=== PATIENT | female | born 2000 | race Caucasian/White ===

== ENCOUNTER 2020-07-14 19:42 | Emergency (ER) | payer BC ==
[~2020-07-14] VITALS: Ht 175.3 cm; Wt 47.0 kg
[2020-07-15] MEDS ORDERED: DEXAMETHASONE SOD PHOS 20 MG/5 ML VIAL. IV ONE (01:00)
--- NOTE | 2020-07-15 01:27 | RAD ---
Study: CR CHEST PA LATERAL Indication: Shortness of air. Comparison: None. Findings: The cardiomediastinal silhouette is within normal limits for size. Slight asymmetric haziness at the lower margin of the right hilum but favored summation artifact as there is no corresponding abnormality on the lateral view. No lobar consolidation, pleural effusion or pneumothorax. Hyperexpanded lungs with the diaphragm at the level of the T11-T12 disc space though the AP dimension of the chest is normal. Grossly intact osseous structures. Unremarkable visualized abdomen. Bilateral nipple rings. Impression: No acute radiographic abnormality of the chest. Relative hyperexpansion of the lungs is most likely physiologic given patient age. Electronically signed by: COLUMBA YOUNGER MD (07/15/2020 1:24 AM) [id number]
[2020-07-15 01:38] LABS: BASO # 0.1 x10^3/uL (0.0-0.2); BASO % 1 % (0-3); EOS # 0.4 x10^3/uL (0.0-0.7); EOS % 6 % (0-3); HEMATOCRIT 39.9 % (36.0-47.0); HEMOGLOBIN 13.4 g/dL (12.0-15.5); LYMPH # 3.1 x10^3/uL (1.0-4.8); LYMPH % 50 % (24-48); MEAN CORPUSCULAR HEMOGLOBIN 28 pg (25-35); MEAN CORPUSCULAR HGB CONC 34 g/dL (31-37); MEAN CORPUSCULAR VOLUME 83 fL (79-100); MONO # 0.5 x10^3/uL (0.0-1.1); MONO % 8 % (0-9); NEUT # 2.2 x10^3/uL (1.8-7.7); NEUT % 35 % (31-73); PLATELET COUNT 295 x10^3/uL (140-400); RED BLOOD COUNT 4.81 x10^6/uL (3.50-5.40); RED CELL DISTRIBUTION WIDTH 13.8 % (11.5-14.5); WHITE BLOOD COUNT 6.2 x10^3/uL (4.0-11.0)
[2020-07-15 01:47] LABS: CALCIUM 9.5 mg/dL (8.5-10.1); CREATININE 0.8 mg/dL (0.6-1.0); GFR 91.4; POTASSIUM 3.7 mmol/L (3.5-5.1)
[2020-07-15 01:50] LABS: PREG TEST PT QUAL NEGATIVE (NEG)
[2020-07-15 01:53] LABS: ALBUMIN 4.1 g/dL (3.4-5.0); ALBUMIN/GLOBULIN RATIO 1.1 (1.0-1.7); TOTAL BILIRUBIN 0.3 mg/dL (0.2-1.0); TOTAL PROTEIN 7.9 g/dL (6.4-8.2)
[2020-07-15] MEDS ORDERED: PRED20TA PO (03:19)
[2020-07-15] MEDS ORDERED: VENTOLIN HFA18 GM INH (03:19)
--- NOTE | 2020-07-15 03:23 | PHYS DOC ---
Past Medical History Past Medical History: Asthma Past Surgical History: No Surgical History Smoking Status: Never Smoker Alcohol Use: None General Adult EDM: Chief Complaint: SHORTNESS OF BREATH HPI: HPI: 19-year-old female past medical history significant for asthma, presents the ED with complaints of worsening shortness of breath and chest tightness x 5 days, such that patient is having difficulty sleeping at night and lying flat. Reports she tested positive for Covid 5 days ago. States she feels like she is having to use her inhaler every hour. No history of hospital admissions for her asthma. Was on control pills but started Depo-Provera 2 months ago, is currently on her menses. No history of leg swelling, recent surgeries or family history of coagulopathy. Review of Systems: Review of Systems: Constitutional: Denies fever or chills. [] Eyes: Denies change in visual acuity. [] HENT: Denies nasal congestion or sore throat. [] Respiratory: Denies cough or hemoptysis Cardiovascular: Denies syncope or edema. [] GI: Denies abdominal pain, nausea, vomiting, bloody stools or diarrhea. [] : Denies dysuria. [] Musculoskeletal: Denies back pain or joint pain. [] Integument: Denies rash. [] Neurologic: Denies headache, focal weakness or sensory changes. [] Endocrine: Denies polyuria or polydipsia. [] Lymphatic: Denies swollen glands. [] Psychiatric: Denies depression or anxiety. [] Heart Score: Risk Factors: Risk Factors: DM, Current or recent (<one month) smoker, HTN, HLP, family history of CAD, obesity. Risk Scores: Score 0 - 3: 2.5% MACE over next 6 weeks - Discharge Home Score 4 - 6: 20.3% MACE over next 6 weeks - Admit for Clinical Observation Score 7 - 10: 72.7% MACE over next 6 weeks - Early Invasive Strategies Current Medications: Current Medications Medications (Trade) Dose Ordered Sig/Kristen Start Time Stop Time Status Last Admin Dose Admin Dexamethasone Sodium Phosphate (Decadron) 10 mg 1X ONCE 07/15/20 01:00 07/15/20 01:01 DC 07/15/20 02:05 10 MG Allergies: Allergies: Allergies Coded Allergies Type Severity Reaction Last Updated Verified No Known Drug Allergies 07/14/20 No Physical Exam: PE: Constitutional: Well developed, well nourished, no acute distress, non-toxic appearance, very thin HENT: Normocephalic, atraumatic, bilateral external ears normal, oropharynx mo ist, no oral exudates, Eyes: EOMI, conjunctiva normal, no discharge. [] Neck: Normal range of motion, supple, no meningismus Cardiovascular: S1 and S2 present Lungs & Thorax: Speaking in full sentences with no tachypnea, bilateral equal chest rise Abdomen: soft, no tenderness, Skin: Warm, dry, no erythema, no rash. [] Extremities: No tenderness, no cyanosis, no clubbing, ROM intact, no LE edema Neurologic: Alert and oriented X 3, normal motor function, normal sensory function, no focal deficits noted. [] Psychologic: Affect normal, judgement normal, mood normal. [] Current Patient Data: Labs: Laboratory Tests Test 07/15/20 01:30 07/15/20 01:57 White Blood Count 6.2 x10^3/uL (4.0-11.0) Red Blood Count 4.81 x10^6/uL (3.50-5.40) Hemoglobin 13.4 g/dL (12.0-15.5) Hematocrit 39.9 % (36.0-47.0) Mean Corpuscular Volume 83 fL (79-100) Mean Corpuscular Hemoglobin 28 pg (25-35) Mean Corpuscular Hemoglobin Concent 34 g/dL (31-37) Red Cell Distribution Width 13.8 % (11.5-14.5) Platelet Count 295 x10^3/uL (140-400) Neutrophils (%) (Auto) 35 % (31-73) Lymphocytes (%) (Auto) 50 % (24-48) H Monocytes (%) (Auto) 8 % (0-9) Eosinophils (%) (Auto) 6 % (0-3) H Basophils (%) (Auto) 1 % (0-3) Neutrophils # (Auto) 2.2 x10^3/uL (1.8-7.7) Lymphocytes # (Auto) 3.1 x10^3/uL (1.0-4.8) Monocytes # (Auto) 0.5 x10^3/uL (0.0-1.1) Eosinophils # (Auto) 0.4 x10^3/uL (0.0-0.7) Basophils # (Auto) 0.1 x10^3/uL (0.0-0.2) D-Dimer (Tova) < 0.27 ug/mlFEU Sodium Level 141 mmol/L (136-145) Potassium Level 3.7 mmol/L (3.5-5.1) Chloride Level 105 mmol/L (98-107) Carbon Dioxide Level 26 mmol/L (21-32) Anion Gap 10 (6-14) Blood Urea Nitrogen 8 mg/dL (7-20) Creatinine 0.8 mg/dL (0.6-1.0) Estimated GFR (Cockcroft-Gault) 91.4 BUN/Creatinine Ratio 10 (6-20) Glucose Level 87 mg/dL (70-99) Calcium Level 9.5 mg/dL (8.5-10.1) Total Bilirubin 0.3 mg/dL (0.2-1.0) Aspartate Amino Transferase (AST) 32 U/L (15-37) Alanine Aminotransferase (ALT) 53 U/L (14-59) Alkaline Phosphatase 76 U/L (46-116) Troponin I Quantitative < 0.017 ng/mL (0.000-0.055) Total Protein 7.9 g/dL (6.4-8.2) Albumin 4.1 g/dL (3.4-5.0) Albumin/Globulin Ratio 1.1 (1.0-1.7) Serum Test, Qualitative Negative (NEG) POC Urine HCG, Qualitative Hcg negative (Negative) Laboratory Tests 07/15/20 01:30 Laboratory Tests 07/15/20 01:30 Vital Signs: Vital Signs Date Time Temp Pulse Resp B/P (MAP) Pulse Ox O2 Delivery O2 Flow Rate FiO2 07/14/20 23:51 97.9 78 18 129/82 (98) 97 Room Air 97.9 EKG: EKG: Sinus arrhythmia at 76 bpm, no axis deviation, normal intervals, T wave inversion lead III and V3, no ST elevations or ST depressions Radiology/Procedures: Radiology/Procedures: []IMAGING REPORT Signed PATIENT: ARIN BEAN ACCOUNT: [id number] : 2000 LOCATION: ER AGE: 19 SEX: F EXAM STATUS: REG ER ORD. PHYSICIAN: WASHINGTON MITCHELL DO REASON: soa PROCEDURE: CHEST PA & LATERAL Study: CR CHEST PA LATERAL Indication: Shortness of air. Comparison: None. Findings: The cardiomediastinal silhouette is within normal limits for size. Slight asymmetric haziness at the lower margin of the right hilum but favored summation artifact as there is no corresponding abnormality on the lateral view. No lobar consolidation, pleural effusion or pneumothorax. Hyperexpanded lungs with the diaphragm at the level of the T11-T12 disc space though the AP dimension of the chest is normal. Grossly intact osseous structures. Unremarkable visualized abdomen. Bilateral nipple rings. Impression: No acute radiographic abnormality of the chest. Relative hyperexpansion of the lungs is most likely physiologic given patient age. Electronically signed by: COLUMBA YOUNGER MD (07/15/2020 1:24 AM) [id number] DICTATED and SIGNED BY: COLUMBA YOUNGER MD DATE: 07/15/20 0124 Course & Med Decision Making: Course & Med Decision Making Pertinent Labs and Imaging studies reviewed. (See chart for details) COVID-19 CRITERIA: The patient was evaluated during the global COVID-19 pandemic, and that diagnosis was suspected/considered upon their initial pres entation. Their evaluation, treatment and testing was consistent with current guidelines for patients who present with complaints or symptoms that may be related to COVID-19. Concern for mild asthma exacerbation in the setting of COVID-19. Will dc home with prednisone and albuterol inhaler. Patient states she has had worsening asthma with steroid inhalers including Breo and Flovent. Patient was aware we ordered a D-dimer but did not rule out life-threatening pulmonary emboli -we will need further imaging if her shortness of breath should worsen or if she should develop any chest pain. Encourage patient to obtain a pulse oximeter- return if number drops below 92%. Strict ED return precautions were given for chest pain, increased work of breathing, hypoxia (pulse ox < 92%), strokelike symptoms, hemoptysis, syncope or neurologic deficits. Encouraged urgent outpatient follow-up with PMD and pulmonology. Life-threatening processes were considered but are low suspicion at this time, given history and physical exam. Pt was educated on all prescription medications and adverse effects. All patient's questions were answered and pt was stable at time of discharge. Life/limb-threatening differential includes but is not limited to, ACS, dysrhythmia, pneumothorax or hemothorax, pulmonary embolus, pneumonia, bronchoconstriction, pulmonary edema, angioedema, epiglottitis, tracheitis, Josh's angina, RPA/SENIOR AGRICULTURAL ASSISTANT, anaphylaxis, angioedema, cardiac tamponade or murmurs, pericarditis, myocarditis, poisoning or toxicity, sepsis or autoimmune/neurologic disease. I spoken with the patient and her caregivers. I explained the patient's condition, diagnoses and treatment plan based on the information available to me at this time. I have answered the patient and her caregiver's questions and addressed any concerns. The patient and her caregivers have a good understanding of patient's diagnosis, condition and treatment plan as can be expected at this point. Vital signs have been stable. Patient's condition is stable and appropriate for discharge from the emergency department. Patient will pursue further outpatient evaluation with primary care physician or other designated or consulting physician as outlined in the discharge instructions. The patient and/or caregivers are agreeable to this plan of care and follow-up instructions have been explained in detail. The patient and/or caregivers have received these instructions in written form and have expressed an understanding of the discharge instructions. The patient and/or caregivers are aware that any significant change of condition or worsening of symptoms should prompt immediate return to this or the closest emergency department or call to 911. Mayte Disclaimer: Mayte Disclaimer: This electronic medical record was generated, in whole or in part, using a voice recognition dictation system. Departure Departure Impression: Primary Impression: COVID-19 Additional Impressions: Dyspnea Asthma Disposition: 01 DC HOME SELF CARE/HOMELESS Condition: STABLE Referrals: NO PCP (PCP) FOLLOW UP WITH FAMILY MEDICINE: Family Medicine Address: [address] [place] [address] Patient Instructions: Asthma, Adult, D-Dimer Test Additional Instructions: FOLLOW UP WITH: [facility] Address: [address] [place] [address] You have been tested for or diagnosed with COVID-19. It is an infection caused by a new type of coronavirus. COVID-19 will cause cold-like or mild flu symptoms in most. It can cause more severe symptoms like problems breathing in some. There is no treatment for COVID-19. The body will clear the infection over time. Self-care will help to ease discomfort. Steps to Take: Self-Care Rest as needed. Healthy habits may help you feel better. Steps include: Choose healthy foods including fruits and vegetables. Drink water throughout the day. Get plenty of sleep each night. If you smoke, try to quit. It may ease breathing. Avoid alcohol. Keep Others Healthy The virus can spread to others. Droplets are released every time you sneeze or cough. The droplets can get into the mouth, nose, or eyes of people near you and lead to infection. To lower the chances of spreading COVID-19 to others: Stay at home until your doctor has said it is safe to leave. If you tested positive this will mean staying isolated until both of the following are true: At least 7 days have passed since the start of illness. You are free of fever for at least 72 hours without the use of medicine. During this time: - Avoid public areas, events, or transportation. Do not return to work or school until your doctor has said it is safe to do so. - Call ahead if you need to go to a medical center. Let them know you may have COVID-19. It will help them guide you where to go. They may also ask you to wear a facemask when you come to the office. - If you call for emergency medical services, let them know you may have COVID- 19. While at home: - Try to avoid close contact with others. Stay about 6 feet away. - If possible, spend most of your time in a separate room from others. - Use a face mask if you will be in close contact with others such as sharing a room or vehicle. - Have someone wipe down common surfaces in the home. Use household tobacco flavorer every day on areas like doorknobs, counters, or sinks. - Cough or sneeze into a tissue. Throw the tissue away right after use. If a tissue is not available, cough or sneeze into your elbow. - Wash your hands often. Wash them after sneezing or coughing. Use soap and anahi er and wash for at least 20 seconds. Alcohol based hand drain cleaner plumber can be used if soap and water is not available. - Do not prepare food for others. Avoid sharing personal items like forks, spoons, or toothbrushes. - Avoid close contact with pets while you are sick. There is no evidence of the virus passing to pets. This is a safety step until more is known about this virus. Isolation can be frustrating. Social interaction can help. Keep in touch with friends and family through phone and tech options. You can still interact with others in your home, just keep a safe distance of about 6 feet. Follow-up: Your doctors office will check in with you to see if there are any changes in your health. You may be asked to keep track of symptoms to share with them. They will also let you know when you are clear to be in public again. Problems to Look Out For: Contact your doctor if your recovery is not going as you expect. Get emergency care if you have problems such as: - Trouble breathing - Nonstop chest pain or pressure - Changes in awareness, confusion, or problems waking - Lips or face have bluish color - Worsening of symptoms If you think you have an emergency, call for emergency medical services right away. As taken from [facility] Albuterol Sulfate (VENTOLIN HFA INHALER) 18 Gm Hfa.aer.ad 2 PUFF INH QID for FOR ASTHMA, #1 INHALER 0 Refills Prov: WASHINGTON MITCHELL DO 07/15/20 Prednisone (PREDNISONE) 20 Mg Tablet 2 TAB PO DAILY for 4 Days, #8 TAB Prov: WASHINGTON MITCHELL DO 07/15/20 WASHINGTON MITCHELL DO Jul 15, 2020 03:23
[2020-07-15 03:47] VITALS: BP 101/66
== END 2020-07-15 03:55 | disposition home or self-care (01) ==
LOC: ER 19:42
DX: U07.1 COVID-19 (principal); R06.02 Shortness of breath; J45.909 Unspecified asthma, uncomplicated
CPT/HCPCS: 36415; 71046; 80053; 81025; 84484; 84703; 85025; 85379; 96374; 99285; J1100

== ENCOUNTER 2020-07-25 16:36 | Emergency (ER) | payer BC ==
[~2020-07-25] VITALS: Ht 165.1 cm; Wt 43.0 kg
[~2020-07-25 16:36] MED LIST: PRED20TA PO; VENTOLIN HFA18 GM INH
--- NOTE | 2020-07-25 17:22 | PHYS DOC ---
Past Medical History Past Medical History: Asthma Past Surgical History: Other Additional Past Surgical Histo: RIGHT KNEE SURGERY Smoking Status: Never Smoker Alcohol Use: None General Adult EDM: Chief Complaint: SHORTNESS OF BREATH HPI: HPI: 19-year-old female presented emergency department today with chest pain and shortness of breath. Her pain is been going on since Tuesday intermittently. The sharp shooting pain in the chest is nonradiating. Its moderate in severity. She denies unilateral leg swelling she is on oral contraceptives. She does have a remote family history of blood clots. She has never had a blood clot personally. She denies recent surgery or immobilization and she is not having hemoptysis. She does not have diabetes hypertension hyperlipidemia. She is not a smoker. Review of systems is negative for abdominal pain nausea vomiting. She has tested Covid 2 weeks ago and is now finished quarantine. She denies runny nose or headache. All other review of systems is negative. ED course: 19-year-old female presenting to the emergency department today with chest pain and shortness of breath. On arrival EKG shows sinus tachycardia. ST segments congruent. Not suggestive of acute ischemia. Blood work and CT angiogram unremarkable for acute pathology. We will discharge the patient home to follow-up with PCP. Heart Score: HEART Score for Chest Pain: HEART Score for Chest Pain Response (Comments) Value History Slighlty/Non-Suspicious 0 ECG Normal 0 Age < 45 0 Risk Factors 1 or 2 Risk Factors 1 Troponin < Normal Limit 0 Total 1 Risk Factors: Risk Factors: DM, Current or recent (<one month) smoker, HTN, HLP, family history of CAD, obesity. Risk Scores: Score 0 - 3: 2.5% MACE over next 6 weeks - Discharge Home Score 4 - 6: 20.3% MACE over next 6 weeks - Admit for Clinical Observation Score 7 - 10: 72.7% MACE over next 6 weeks - Early Invasive Strategies Allergies: Allergies: Allergies Coded Allergies Type Severity Reaction Last Updated Verified No Known Drug Allergies 07/14/20 No Physical Exam: PE: Constitutional: Well developed, well nourished, no acute distress, non-toxic appearance. [] HENT: Normocephalic, atraumatic, bilateral external ears normal, oropharynx m oist, no oral exudates, nose normal. [] Eyes: PERRLA, EOMI, conjunctiva normal, no discharge. [] Neck: Normal range of motion, no tenderness, supple, no stridor. [] Cardiovascular:Heart rate regular rhythm, no murmur [] Lungs & Thorax: Bilateral breath sounds clear to auscultation [] Abdomen: Bowel sounds normal, soft, no tenderness, no masses, no pulsatile masses. [] Skin: Warm, dry, no erythema, no rash. [] Back: No tenderness, no CVA tenderness. [] Extremities: No tenderness, no cyanosis, no clubbing, ROM intact, no edema. [] Neurologic: Alert and oriented X 3, normal motor function, normal sensory function, no focal deficits noted. [] Psychologic: Affect normal, judgement normal, mood normal. [] Current Patient Data: Vital Signs: Vital Signs Date Time Temp Pulse Resp B/P (MAP) Pulse Ox O2 Delivery O2 Flow Rate FiO2 07/25/20 16:59 98.3 115 20 167/74 (105) 100 Room Air 98.3 EKG: EKG: [] Radiology/Procedures: Radiology/Procedures: [] Course & Med Decision Making: Course & Med Decision Making Pertinent Labs and Imaging studies reviewed. (See chart for details) [] Dragon Disclaimer: Dragon Disclaimer: This electronic medical record was generated, in whole or in part, using a voice recognition dictation system. Departure Departure Impression: Primary Impression: Chest pain Additional Impression: SOB (shortness of breath) Disposition: 01 DC HOME SELF CARE/HOMELESS Condition: STABLE Referrals: NO PCP (PCP) Patient Instructions: Chest Pain (Nonspecific) Additional Instructions: Follow-up with your primary physician in 1 to 2 days. Return to the emergency department if you have any new or concerning findings. SHERRELL NGUYEN MD Jul 25, 2020 17:22
[2020-07-25 17:24] LABS: BASO # 0.1 x10^3/uL (0.0-0.2); BASO % 1 % (0-3); EOS # 0.3 x10^3/uL (0.0-0.7); EOS % 4 % (0-3); HEMATOCRIT 39.7 % (36.0-47.0); HEMOGLOBIN 13.3 g/dL (12.0-15.5); LYMPH # 2.3 x10^3/uL (1.0-4.8); LYMPH % 34 % (24-48); MEAN CORPUSCULAR HEMOGLOBIN 27 pg (25-35); MEAN CORPUSCULAR HGB CONC 33 g/dL (31-37); MEAN CORPUSCULAR VOLUME 82 fL (79-100); MONO # 0.7 x10^3/uL (0.0-1.1); MONO % 10 % (0-9); NEUT # 3.5 x10^3/uL (1.8-7.7); NEUT % 51 % (31-73); PLATELET COUNT 354 x10^3/uL (140-400); RED BLOOD COUNT 4.84 x10^6/uL (3.50-5.40); WHITE BLOOD COUNT 6.8 x10^3/uL (4.0-11.0)
[2020-07-25 17:28] VITALS: BP 111/68
[2020-07-25] MEDS ORDERED: IOHEXOL 350 MG/ML 100 ML VIAL. IV ONE (17:30)
[2020-07-25] MEDS ORDERED: CONTRAST GIVEN. MC PRN (17:30)
[2020-07-25 17:33] LABS: CALCIUM 9.8 mg/dL (8.5-10.1); CREATININE 0.7 mg/dL (0.6-1.0); GFR 106.7
[2020-07-25 17:39] LABS: ALBUMIN 4.2 g/dL (3.4-5.0); DIRECT BILIRUBIN 0.1 mg/dL (0.0-0.2); TOTAL BILIRUBIN 0.2 mg/dL (0.2-1.0); TOTAL PROTEIN 7.9 g/dL (6.4-8.2)
[2020-07-25 17:41] LABS: PREG TEST PT QUAL NEGATIVE (NEG)
--- NOTE | 2020-07-25 18:11 | RAD ---
Examination: CT ANGIOGRAPHY CHEST History: Reason: chest pain /shortness of breath Comparison/Correlation: None Findings: Axial images of the chest were obtained following IV contrast pulmonary arteriography protocol. Sagittal and coronal reformatted images were provided. Maximum intensity projection images were provided. Pulmonary arterial vasculature is normal. No infiltrate or effusion. No pneumothorax. No enlarged thoracic lymph nodes. Aorta is unremarkable. Extrarenal pelves are incidentally seen. Right lower renal aberrant artery is present. Bony structures are unremarkable. Impression: No PE or infiltrate. Unremarkable exam. PQRS Compliance Statement: One or more of the following individualized dose reduction techniques were utilized for this examination: 1. Automated exposure control 2. Adjustment of the mA and/or kV according to patient size 3. Use of iterative reconstruction technique Electronically signed by: Ronald Hong MD (07/25/2020 6:08 PM) [facility]
--- NOTE | 2020-07-25 18:12 | RAD ---
Examination: CHEST AP ONLY History: Reason: chest pain / Comparison: 06/14/2020. Findings: AP portable upright frontal view of the chest was obtained. The cardiomediastinal silhouette is normal. Lungs are clear. There is no pneumothorax. No pleural effusion is appreciated. No acute bone abnormality. IMPRESSION: No acute cardiopulmonary process. Electronically signed by: Ronald Hong MD (07/25/2020 6:10 PM) [facility]
== END 2020-07-25 19:10 | disposition home or self-care (01) ==
LOC: ER 16:36
DX: R07.89 Other chest pain (principal); R06.02 Shortness of breath; J45.909 Unspecified asthma, uncomplicated
CPT/HCPCS: 36415; 71045; 71275; 80048; 80076; 83690; 84484; 84703; 85025; 99285; Q9967

== ENCOUNTER → 2020-09-29 | Outpatient (CLI) | payer BC ==
--- NOTE | 2020-09-29 12:21 | CARD ---
MR#: [id number] Date of Study: 09/29/2020 Ordering Physician: DANDY PADILLA, Referring Physician: DANDY PADILLA, Tech: Rina Pearson [facility] [[email or web address] APPROVED REPORT EXAM: Two-dimensional and M-mode echocardiogram with Doppler and color Doppler. 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 [id number]/sTR Peak Gr.16mmHg LEFT VENTRICLE The left ventricle is normal size. There is normal left ventricular wall thickness. The left ventricu lar systolic function is normal and the ejection fraction is within normal range. Estimated ejection fraction 55-60% There is normal LV segmental wall motion. The left ventricular diastolic function an d filling is normal for age. RIGHT VENTRICLE The right ventricle is normal size. There is normal right ventricular wall thickness. The right ventr icular systolic function is normal. ATRIA The left atrium size is normal. The right atrium size is normal. The interatrial septum is intact wit h no evidence for an atrial septal defect or patent foramen ovale as noted on 2-D or Doppler imaging. AORTIC VALVE The aortic valve is normal in structure and function. Doppler and Color Flow revealed no significant aortic regurgitation. There is no significant aortic valvular stenosis. MITRAL VALVE The mitral valve is normal in structure and function. There is no evidence of mitral valve prolapse. There is no mitral valve stenosis. Doppler and Color Flow revealed trace mitral valve regurgitation. TRICUSPID VALVE The tricuspid valve is normal in structure and function. Doppler and Color Flow revealed no tricuspid valve regurgitation noted. PULMONIC VALVE The pulmonary valve is normal in structure and function. Doppler and Color Flow revealed no pulmonic valvular regurgitation. GREAT VESSELS The aortic root is normal in size. The ascending aorta is normal in size. The IVC is normal in size a nd collapses >50% with inspiration. PERICARDIAL EFFUSION There is no evidence of significant pericardial effusion. Critical Notification Critical Value: No <Conclusion> The left ventricle is normal size. The left ventricular systolic function is normal and the ejection fraction is within normal range. Estimated ejection fraction 55-60% There is normal LV segmental wall motion. Doppler and Color Flow revealed no significant aortic regurgitation. There is no significant aortic valvular stenosis. Doppler and Color Flow revealed trace mitral valve regurgitation. Doppler and Color Flow revealed no tricuspid valve regurgitation noted. Signed by : Robert Contreras MD Electronically Approved : 09/29/2020 12:20:32
== END ==
LOC: ECHO 08:45
PROVIDERS: ATTEND Internal Medicine Cardiovascular Disease
DX: R07.9 Chest pain, unspecified (principal)
CPT/HCPCS: 93306

== ENCOUNTER → 2021-01-15 | Outpatient (CLI) | payer BC ==
--- NOTE | 2021-01-15 14:49 | KCIC ---
MRI of the brain without contrast 01/15/2021 Clinical History: Constant headaches since having Covid and June 2020. Technique: Unenhanced T1-weighted sagittal and axial, T2-weighted axial and coronal and FLAIR, suscep tibility weighted and diffusion-weighted axial images of the brain were obtained. Findings: The ventricles and sulci are within normal limits in size and configuration. No area of sig nificant abnormal signal intensity is seen involving the brain parenchyma. No extra-axial fluid colle ction is noted. There is no evidence of acute ischemia/infarction. Mild mucosal thickening is seen scattered throughout the paranasal sinuses. A 7 mm mucous retention c yst is seen involving the right maxillary sinus. Normal flow voids are seen within the major vascular structures surrounding the brain parenchyma. IMPRESSION: 1. Negative MRI of the brain. 2. Mild paranasal sinus disease. Electronically signed by: Sim Golden MD (01/15/2021 2:47 PM) [id number]
== END ==
LOC: KCIC MRI 10:41
PROVIDERS: ATTEND Nurse Practitioner Family
DX: G43.709 Chronic migraine without aura, not intractable, without status migrainosus (principal); B94.8 Sequelae of other specified infectious and parasitic diseases; K11.6 Mucocele of salivary gland
CPT/HCPCS: 70551